=== PATIENT | female | born 2000 | race Caucasian/White ===

== ENCOUNTER 2021-01-18 20:19 | Outpatient (CLI) | payer OTHER ==
[~2021-01-18 20:19] MED LIST: COLACE 100MG C100 MG PO; IBUPROFEN600 MG PO; LORTAB 5-325 M1 EACH PO; PRENATA CHEWAB1 EACH PO
== END 2021-01-18 22:15 | disposition home or self-care (01) ==
LOC: GENOP 20:19
DX: O99.891 Other specified diseases and conditions complicating pregnancy (principal); M54.9 Dorsalgia, unspecified; O99.353 Diseases of the nervous system complicating pregnancy, third trimester; G43.909 Migraine, unspecified, not intractable, without status migrainosus; O99.513 Diseases of the respiratory system complicating pregnancy, third trimester; J45.909 Unspecified asthma, uncomplicated; Z3A.33 33 weeks gestation of pregnancy
CPT/HCPCS: 82731; G0463

== ENCOUNTER 2021-01-26 00:54 | Outpatient (CLI) | payer OTHER | END 2021-01-26 09:00 | disposition home or self-care (01) | LOC: GENOP 00:54 | DX: O99.891 Other specified diseases and conditions complicating pregnancy (principal); N89.8 Other specified noninflammatory disorders of vagina; O99.513 Diseases of the respiratory system complicating pregnancy, third trimester; J45.909 Unspecified asthma, uncomplicated; O99.353 Diseases of the nervous system complicating pregnancy, third trimester; G43.909 Migraine, unspecified, not intractable, without status migrainosus; Z3A.34 34 weeks gestation of pregnancy | CPT/HCPCS: 81001; 83518; 96360; 96366; 96372; J3105 ==

== ENCOUNTER 2021-01-28 20:47 | Outpatient (CLI) | payer OTHER | END 2021-01-29 07:50 | disposition home or self-care (01) | LOC: GENOP 20:47 | DX: O99.891 Other specified diseases and conditions complicating pregnancy (principal); R10.9 Unspecified abdominal pain; M54.9 Dorsalgia, unspecified; O99.513 Diseases of the respiratory system complicating pregnancy, third trimester; J45.909 Unspecified asthma, uncomplicated; O99.353 Diseases of the nervous system complicating pregnancy, third trimester; G43.909 Migraine, unspecified, not intractable, without status migrainosus; Z3A.34 34 weeks gestation of pregnancy | CPT/HCPCS: 81001; 96360; 96361; 96372; J3105 ==

== ENCOUNTER 2021-02-20 01:51 | Inpatient (IN) | payer OTHER ==
[~2021-02-20] VITALS: Ht 154.9 cm; Wt 73.9 kg
[2021-02-20] MEDS ORDERED: PRENATAL COMPL1 EACH PO (05:12)
[2021-02-20 08:45] LABS: HEMOGLOBIN 13.2 gm/dl (12.3-15.3); RED BLOOD COUNT 4.03 M/UL (4.00-5.10); WHITE BLOOD COUNT 8.5 K/UL (4.5-11.0)
[2021-02-20] MEDS ORDERED: DOCUSATE SODIU100 MG PO (15:21)
[2021-02-20] MEDS ORDERED: IBUPROFEN800 MG PO (15:21)
[2021-02-21 06:55] LABS: HEMOGLOBIN 11.8 gm/dl (12.3-15.3)
== END 2021-02-21 17:27 | disposition home or self-care (01) | DRG 807 ==
LOC: GENOP 01:51 → OB 07:58
PROVIDERS: Obstetrics & Gynecology; ADMIT Obstetrics & Gynecology
PROC: 10E0XZZ Delivery of Products of Conception, External Approach (ICD-10-PCS; principal; 2021-02-20)
PROC: 10907ZC Drainage of Amniotic Fluid, Therapeutic from Products of Conception, Via Natural or Artificial Opening (ICD-10-PCS; 2021-02-20)
PROC: 4A1HXCZ Monitoring of Products of Conception, Cardiac Rate, External Approach (ICD-10-PCS; 2021-02-20)
PROC: 0UQMXZZ Repair Vulva, External Approach (ICD-10-PCS; 2021-02-20)
DX: O99.52 Diseases of the respiratory system complicating childbirth (principal); Z37.0 Single live birth; J45.909 Unspecified asthma, uncomplicated; Z3A.38 38 weeks gestation of pregnancy; Z20.822 Contact with and (suspected) exposure to COVID-19; O70.0 First degree perineal laceration during delivery
CPT/HCPCS: 36415; 51702; 81001; 82800; 85014; 85018; 85025; 90471; 90715; J2405; J2590; J7120; U0002